=== PATIENT | male | born 1970 | race Caucasian/White ===

== ENCOUNTER 2018-04-24 07:32 | Inpatient (IN) | payer BC ==
[2018-04-24] VITALS (14 sets, daily range): BP systolic 125–174; BP diastolic 76–101
[~2018-04-24 07:32] MED LIST: FLUO-201 PO
--- NOTE | 2018-04-24 07:43 | ER Report ---
History and Physical Time Seen By MD: 07:43 Hx. of Stated Complaint: ABDOMINAL CRAMPING, SHARP PAIN IN RLQ, INTERMITTENT LOW GRADE FEVER HPI/ROS This is an otherwise healthy 48-year-old male who presents to the emergency department with right lower quadrant abdominal pain that has been ongoing for 1 week. He denies nausea or vomiting. No diarrhea. Reports subjective intermittent fever chills. The patient states that he has had similar pain in the past, but the pain lasts 1-2 days only and self resolves. He has never sought medical care for the pain. The intermittent pain has been going on for approximately 5 years. This episode is similar in severity of pain, however the length of symptoms have lasted longer. No testicular pain. No hematuria or other urinary symptoms. He has not had any abdominal surgeries in the past. He reports normal bowel movements. Remainder of the 14 system rev: Yes Allergies: Coded Allergies: Penicillins (Verified Allergy, Unknown, 04/24/18) EHR CONVERSION Home Meds Discontinued Scripts Fluoxetine Hcl (PROZAC) 10 Mg Capsule, 1 CAP PO QDAY, #60 CAPSULE Prov:KULWINDER JEWELL MD 06/29/17 Reviewed Nurses Notes: Yes Old Medical Records Reviewed: Yes Hx Smoking: No Smoking Status: Never Smoker Exposure to Second Hand Smoke?: No Hx Substance Use Disorder: No Hx Alcohol Use: No Constitutional Vital Sign - Last 24 Hours 04/24/18 07:36 Temp 98.1 Pulse 101 Resp 18 B/P (MAP) 130/83 Pulse Ox 92 O2 Delivery Room Air Physical Exam General Appearance: The patient is alert, has no immediate need for airway protection and no current signs of toxicity. Eyes: Pupils equal and round no injection. Respiratory: Chest is non tender, lungs are clear to auscultation. Cardiac: regular rate and rhythm Gastrointestinal: Abdomen is soft with RLQ TTP, no masses, bowel sounds normal. Neck: Neck is supple and non tender. Extremities have full range of motion and are non tender. Skin: No rashes or lesions. DIFFERENTIAL DIAGNOSIS: After history and physical exam differential diagnosis was considered for abdominal pain including but not limited to appendicitis, cholecystitis, gastritis and urinary tract infection. Medical Decision Making Data Points Result Diagram: 04/24/18 0745 04/24/18 0745 Laboratory Hematology Test 04/24/18 07:38 04/24/18 07:45 Urine Color Yellow Urine Clarity Clear Urine pH 5.0 pH (4.8-9.5) Urine Specific [employer] 1.019 Urine Protein Negative mg/dL (NEGATIVE) Urine Glucose (UA) Negative mg/dL (NEGATIVE) Urine Ketones 20 mg/dL (NEGATIVE) Urine Blood Small (NEGATIVE) Urine Nitrite Negative (NEGATIVE) Urine Bilirubin Negative (NEGATIVE) Urine Urobilinogen Negative mg/dL (0.2-1.9) Urine Leukocyte Esterase Negative (NEGATIVE) Urine RBC 1 /HPF (0-2/HPF) Urine WBC 1 /HPF (0-5/HPF) Urine Squamous Epithelial Cells None /LPF (</=FEW) Urine Bacteria Negative /HPF (NONE-FEW) Urine Mucus Few /HPF (NONE-FEW) Red Blood Count 5.00 M/uL (4.00-5.60) Mean Corpuscular Volume 85.6 fL (80.0-96.0) Mean Corpuscular Hemoglobin 30.4 pg (26.0-33.0) Mean Corpuscular Hemoglobin Concent 35.5 g/dL (32.0-36.0) Red Cell Distribution Width 13.4 % (11.5-14.5) Mean Platelet Volume 7.1 fL (7.2-11.1) Neutrophils (%) (Auto) 70.8 % (39.4-72.5) Lymphocytes (%) (Auto) 14.5 % (17.6-49.6) Monocytes (%) (Auto) 12.5 % (4.1-12.4) Eosinophils (%) (Auto) 1.6 % (0.4-6.7) Basophils (%) (Auto) 0.6 % (0.3-1.4) Nucleated RBC Relative Count (auto) 0.0 /100WBC Neutrophils # (Auto) 7.1 K/uL (2.0-7.4) Lymphocytes # (Auto) 1.5 K/uL (1.3-3.6) Monocytes # (Auto) 1.3 K/uL (0.3-1.0) Eosinophils # (Auto) 0.2 K/uL (0.0-0.5) Basophils # (Auto) 0.1 K/uL (0.0-0.1) Nucleated RBC Absolute Count (auto) 0.00 K/uL Peripheral Blood Smear No Y/N Sodium Level 139 mmol/L (137-145) Potassium Level 3.6 mmol/L (3.5-5.0) Chloride Level 101 mmol/L (98-107) Carbon Dioxide Level 26 mmol/L (22-30) Blood Urea Nitrogen 12 mg/dl (9-21) Creatinine 1.00 mg/dl (0.66-1.25) Glomerular Filtration Rate Calc > 60.0 Random Glucose 134 mg/dl (75-110) Calcium Level 9.1 mg/dl (8.4-10.2) Total Bilirubin 0.9 mg/dl (0.2-1.3) Aspartate Amino Transf (AST/SGOT) 21 U/L (0-35) Alanine Aminotransferase (ALT/SGPT) 37 U/L (0-56) Alkaline Phosphatase 46 U/L (0-126) Total Protein 7.9 g/dl (6.3-8.2) Albumin 4.4 g/dl (3.5-5.0) Lipase 32 U/L (23-300) Chemistry Test 04/24/18 07:38 04/24/18 07:45 Urine Color Yellow Urine Clarity Clear Urine pH 5.0 pH (4.8-9.5) Urine Specific [employer] 1.019 Urine Protein Negative mg/dL (NEGATIVE) Urine Glucose (UA) Negative mg/dL (NEGATIVE) Urine Ketones 20 mg/dL (NEGATIVE) Urine Blood Small (NEGATIVE) Urine Nitrite Negative (NEGATIVE) Urine Bilirubin Negative (NEGATIVE) Urine Urobilinogen Negative mg/dL (0.2-1.9) Urine Leukocyte Esterase Negative (NEGATIVE) Urine RBC 1 /HPF (0-2/HPF) Urine WBC 1 /HPF (0-5/HPF) Urine Squamous Epithelial Cells None /LPF (</=FEW) Urine Bacteria Negative /HPF (NONE-FEW) Urine Mucus Few /HPF (NONE-FEW) White Blood Count 10.1 k/uL (4.5-11.0) Red Blood Count 5.00 M/uL (4.00-5.60) Hemoglobin 15.2 g/dL (14.0-18.0) Hematocrit 42.8 % (42.0-52.0) Mean Corpuscular Volume 85.6 fL (80.0-96.0) Mean Corpuscular Hemoglobin 30.4 pg (26.0-33.0) Mean Corpuscular Hemoglobin Concent 35.5 g/dL (32.0-36.0) Red Cell Distribution Width 13.4 % (11.5-14.5) Platelet Count 317 K/uL (150-450) Mean Platelet Volume 7.1 fL (7.2-11.1) Neutrophils (%) (Auto) 70.8 % (39.4-72.5) Lymphocytes (%) (Auto) 14.5 % (17.6-49.6) Monocytes (%) (Auto) 12.5 % (4.1-12.4) Eosinophils (%) (Auto) 1.6 % (0.4-6.7) Basophils (%) (Auto) 0.6 % (0.3-1.4) Nucleated RBC Relative Count (auto) 0.0 /100WBC Neutrophils # (Auto) 7.1 K/uL (2.0-7.4) Lymphocytes # (Auto) 1.5 K/uL (1.3-3.6) Monocytes # (Auto) 1.3 K/uL (0.3-1.0) Eosinophils # (Auto) 0.2 K/uL (0.0-0.5) Basophils # (Auto) 0.1 K/uL (0.0-0.1) Nucleated RBC Absolute Count (auto) 0.00 K/uL Peripheral Blood Smear No Y/N Glomerular Filtration Rate Calc > 60.0 Calcium Level 9.1 mg/dl (8.4-10.2) Total Bilirubin 0.9 mg/dl (0.2-1.3) Aspartate Amino Transf (AST/SGOT) 21 U/L (0-35) Alanine Aminotransferase (ALT/SGPT) 37 U/L (0-56) Alkaline Phosphatase 46 U/L (0-126) Total Protein 7.9 g/dl (6.3-8.2) Albumin 4.4 g/dl (3.5-5.0) Lipase 32 U/L (23-300) Urinalysis Test 04/24/18 07:38 Urine Color Yellow Urine Clarity Clear Urine pH 5.0 pH (4.8-9.5) Urine Specific [employer] 1.019 Urine Protein Negative mg/dL (NEGATIVE) Urine Glucose (UA) Negative mg/dL (NEGATIVE) Urine Ketones 20 mg/dL (NEGATIVE) Urine Blood Small (NEGATIVE) Urine Nitrite Negative (NEGATIVE) Urine Bilirubin Negative (NEGATIVE) Urine Urobilinogen Negative mg/dL (0.2-1.9) Urine Leukocyte Esterase Negative (NEGATIVE) Urine RBC 1 /HPF (0-2/HPF) Urine WBC 1 /HPF (0-5/HPF) Urine Squamous Epithelial Cells None /LPF (</=FEW) Urine Bacteria Negative /HPF (NONE-FEW) Urine Mucus Few /HPF (NONE-FEW) EKG/Imaging Imaging Results: CT scan of the abdomen/pelvis was obtained. The results of the study are likely ruptured appendicitis. The study was read by the radiologist. I viewed the images myself on the PACS system. ED Course/Re-evaluation ED Course Otherwise healthy 48-year-old male with one week of worsening right lower quadrant pain. CT scan suggestive of a ruptured appendicitis. Dr. Hodge is at the bedside. The patient is otherwise stable. He was given Levaquin and Flagyl for antibiotics due to his penicillin allergy. He is currently NPO. He will be transferred to the OR upon leaving the emergency department. Decision to Disposition Date: Apr 24, 2018 Decision to Disposition Time: 10:56 Depart Departure Latest Vital Signs Vital Signs Date Time Temp Pulse Resp B/P (MAP) Pulse Ox O2 Delivery O2 Flow Rate FiO2 04/24/18 07:36 98.1 101 18 130/83 92 Room Air Impression: Primary Impression: Appendicitis with perforation Condition: Improved Disposition: ADMIT FROM ER TO OR Referrals: KULWINDER JEWELL MD (PCP) New Scripts No Active Prescriptions or Reported Meds CHRISTINA CARPENTER MD Apr 24, 2018 07:43
[2018-04-24] MEDS ORDERED: NS(*) 0.9% 1000 ML BAG 1,000 ML IV ONE (07:45)
[2018-04-24 08:05] LABS: PLATELET COUNT, AUTOMATED 317 K/uL (150-450)
[2018-04-24] MEDS ORDERED: IOPAMIDOL 76% 100 ML INFUS BTL 100 ML ONE (09:13)
--- NOTE | 2018-04-24 10:02 | RADIOLOGY IMAGING REPORT ---
FACILITY: [facility] PATIENT NAME: Hola Bee : 1970 MR: [id number] V: [id number] EXAM DATE: ORDERING PHYSICIAN: CHRISTINA CARPENTER TECHNOLOGIST: [place] [facility] [place] Hola Bee : 1970 Visit/Account:[id number] Date of Sevice: 04/24/2018 ABDOMEN/PELVIS WITH CONTRAST HISTORY: Right lower quadrant pain and nausea. TECHNIQUE: CT abdomen and pelvis with intravenous contrast. One of the following dose optimization techniques was utilized in the performance of this exam: Autom ated exposure control; adjustment of the mA and/or kV according to the patient's size; or use of an i terative reconstruction technique. Specific details can be referenced in the facility's radiology C T exam operational policy. CONTRAST: 85 mL Isovue-370 IV COMPARISON: None. FINDINGS: Visualized lung bases: Negative. Hepatobiliary: Negative. Spleen: Negative. Adrenals: 0.9 x 1.2 cm left adrenal nodule (3/123) intermediate in attenuation. Pancreas: Negative. Kidneys/: Several too small to characterize low attenuating lower pole renal cortical lesions, lik jyoti cysts. GI: Stomach and small bowel unremarkable. Retrocecal appendix, distended measuring approximately 14 mm maximum diameter. Partially circumscribed and rim-enhancing 2.7 x 3.0 cm fluid collection surround ing the appendiceal tip consistent with rupture and periappendiceal abscess. Colon unremarkable. Vessels/spaces/nodes: Surrounding the aforementioned dilated appendix and periappendiceal abscess, m oderate inflammation and trace free fluid with thickening of the adjacent peritoneal reflection. Jalyn ral prominent but not frankly enlarged and likely reactive right lower quadrant mesenteric lymph node s. Circumaortic left renal vein, normal variant. No pneumoperitoneum. Bones/soft tissues: Mild degenerative changes right greater than left hips. IMPRESSION: 1. Acute appendicitis with likely perforation and periappendiceal abscess. 2. 1.2 cm left adrenal nodule, probably benign. According to ACR recommendations regarding incidental findings however, correlation with biochemical assay to determine functional status and exclude pheo chromocytoma as well as follow-up CT in 12-months to assess stability should be considered. Findings of acute appendicitis with likely perforation and abscess were called to Dr. CHRISTINA CARPENTER at 08/2018 9:55 AM. Report Dictated By: Dao Fitzgerald MD at 04/24/2018 9:45 AM Report E-Signed By: Dao Fitzgerald MD at 04/24/2018 9:58 AM WSN:[id number]
[2018-04-24] MEDS ORDERED: LEVOFLOXACIN/D5W*500 MG/100 ML 100 ML IVPB ONE (10:10)
[2018-04-24] MEDS ORDERED: metroNIDAZOLE* 500MG/100ML BAG 100 ML IVPB ONE (10:10)
[2018-04-24] MEDS ORDERED: ROPIVACAINE 0.5% 20 ML VIAL ONE (10:13)
--- NOTE | 2018-04-24 10:27 | Gen Surgery History & Physical ---
History of Present Illness Chief Complaint RLQ abdominal pain History of Present Illness 48yo male presents to [facility] ER with 1 week of worsening RLQ abdominal pain. He actually has had similar symptoms 3-4 times over the last 5 years that would resolve after a day or two. This time, it has been getting worse. No N/V. No diarrhea or constipation. CT scan is c/w perforated appendicitis with periappendiceal fluid. History Problems: (1) Low back pain with sciatica Status: Chronic Home Meds Discontinued Scripts Fluoxetine Hcl (PROZAC) 10 Mg Capsule, 1 CAP PO QDAY, #60 CAPSULE Prov:KULWINDER JEWELL MD 06/29/17 Allergies: Coded Allergies: Penicillins (Verified Allergy, Unknown, 04/24/18) EHR CONVERSION Review of Systems All Systems Reviewed/Normal: Yes, Except as Noted Gastrointestinal: Abdominal Pain Exam General Appearance: Alert, Awake, No Acute Distress, Afebrile Neuro: No Gross deficits Eyes: PERRLA GI: Other (Soft, RLQ TTP with peritoneal irritation) Extremities: Warm, Perfused Medical Decision Making Data Points Result Diagram: 04/24/18 0745 04/24/18 0745 Assessment and Plan Problems: (1) Appendicitis with peritoneal abscess Status: Acute Assessment & Plan: 04/24/18: Atypical and delayed presentation for appendicitis. I have explained this to the patient and I've recommend that we proceed with surgery, namely diagnostic laparoscopy and at least drainage of the fluid collection but if there's a phlegmon then I will plan on draining his RLQ and getting out without further attempts at removing his appendix during this initial operation to avoid injuring his small bowel, colon, or ureter and we would treat him with antibiotics and then plan on interval appendectomy in at least 6 weeks. If I can remove the appendix during this operation, in addition to draining the fluid collection then I will. I have explained the operation with the patient in great detail along with the alternatives, including non-operative management with antibiotics alone, but I have recommended surgical exploration. After this discussion, he seems to understand and he indicates that he would like to proceed with surgery. I have also told him that there's a good chance that I will leave a drain in his RLQ as well. Will give him a dose of levaquin and metronidazole since he has a PCN allergy. I have also informed him that he will be in the hospital for several days and he can go home when he's tolerating a regular diet, demonstrates good bowel function, and he's not having fevers (and rest of vital signs are normal) and his WBC is normal. He seems to understand this as well. (2) Appendicitis with perforation Status: Acute Condition Stable. Time Spent: < 30 min Venous Thromboembolism VTE Risk Physician Assess for VTE Risk: Yes Patient's VTE Risk: Low VTE Diagnostic Test 2 Days Prior to Admit: No Antithrombotics Is Pt On Any Antithrombotics?: No RIGO JOHNSON MD Apr 24, 2018 10:27
[2018-04-24] MEDS ORDERED: NORMOSOL R SOLN(*) 1000 ML BAG 1,000 ML IV ONE (10:28)
[2018-04-24] MEDS ORDERED: NEOSTIG METHYLSUL 10MG/10ML VL ONE (10:47)
[2018-04-24] MEDS ORDERED: PROPOFOL EMUL(*) 10MG/ML 20 ML 20 ML ONE (10:47)
[2018-04-24] MEDS ORDERED: DEXAMETHASONE SOD 4 MG/ML VIAL ONE (10:47)
[2018-04-24] MEDS ORDERED: ROCURONIUM BROM 10 MG/ML 10 ML ONE (10:47)
[2018-04-24] MEDS ORDERED: METOCLOPRAMIDE 10 MG/2 ML SDV ONE (10:47)
[2018-04-24] MEDS ORDERED: SUGAMMADEX SOD 200 MG/2 ML SDV ONE (10:47)
[2018-04-24] MEDS ORDERED: fentaNYL CITR 100 MCG/2 ML AMP ONE ×4 (10:48→13:48)
[2018-04-24] MEDS ORDERED: NALOXONE HCL 0.4 MG/ML VIAL IVP PRN (12:50)
[2018-04-24] MEDS ORDERED: FLUSH 10 ML SYR IVP PRN (12:50)
[2018-04-24] MEDS ORDERED: ONDANSETRON 4 MG/2 ML VIAL IVP PRN (12:50)
[2018-04-24] MEDS ORDERED: ACETAMINOPHEN(*)1000 MG/100 ML 100 ML IVPB PRN (12:50)
[2018-04-24] MEDS ORDERED: ACETAMINOPHEN(*)1000 MG/100 ML 100 ML IVPB ONE (12:57)
[2018-04-24] MEDS ORDERED: ONDANSETRON 4 MG/2 ML VIAL ONE (12:58)
--- NOTE | 2018-04-24 13:06 | Post Operative Progress Note ---
Post Operative Progress Note Date: Apr 24, 2018 Time: 12:57 Surgeon: Naveen Dictation number: [id number] Anesthesia: GETA by Dr. Patterson Pre-Op Diagnosis: Perforated appendicitis with abscess Post-Op Diagnosis: DESI Findings: C/W dx, periappendiceal abscess Procedure(s): Lap appy Specimen Removed:(May be N/A): Appendix Abscess fluid sent for gram stain and Cx/Sens. Complications: None Fluids: See anesthesia record Estimated Blood Loss: Minimal Date OP Note Dictated: Apr 24, 2018 Time OP Note Dictated: 12:58 RIGO JOHNSON MD Apr 24, 2018 13:06
[2018-04-24] MEDS ORDERED: LABETALOL HCL 100 MG/20ML VIAL ONE (13:09)
[2018-04-24] MEDS: PROMETHAZINE 25 MG/ML 1 ML AMP IVP PRN (13:17)
[2018-04-24] MEDS: NS(*) 0.9% 1000 ML BAG 1,000 ML IV PRN ×2 (13:25→23:21)
[2018-04-24] MEDS: HYDROmorphone PCA 6 MG/30 ML IV PRN (14:50)
[2018-04-24] MEDS: metroNIDAZOLE* 500MG/100ML BAG 100 ML IVPB SCH ×2 (17:23→23:21)
[2018-04-25 04:07] VITALS: BP 139/93
[2018-04-25] MEDS: HYDROmorphone PCA 6 MG/30 ML IV PRN ×2 (04:36→23:30)
--- NOTE | 2018-04-25 04:46 | OPERATIVE REPORT 1 ---
EVENT DATE: April 24, 2018 SURGEON: Elgin Hodge MD ANESTHESIOLOGIST: Elgin Patterson MD ANESTHESIA: General endotracheal. PREOPERATIVE DIAGNOSIS Acute perforated appendicitis with abscess. POSTOPERATIVE DIAGNOSIS Acute perforated appendicitis with abscess. PROCEDURE PERFORMED Laparoscopic appendectomy. COMPLICATIONS None. CONDITION Stable. BLOOD LOSS Minimal. FINDINGS This patient had an acutely inflamed appendix. It was adherent to the lower abdominal sidewall, and there was an adjacent abscess. INDICATIONS This is a 48-year-old gentleman who presented to the emergency department with a one-week history of worsening right lower quadrant abdominal pain. He had had intermittent abdominal pain over the last five years, he has had about three or four episodes of similar symptoms, but they went away spontaneously. This time, it has not gone away, and it is getting worse. A CT scan is consistent with a perforated appendicitis. DESCRIPTION OF PROCEDURE The patient was brought to the operating room, placed supine on the operating table. General endotracheal anesthesia was administered, and his abdomen was prepped and draped in sterile fashion. A time out was completed, and I injected the infraumbilical skin with 0.2% ropivacaine plain. I made a curvilinear smiley-face type incision in the infraumbilical rim and dissected through the dermis and into the subcutaneous fat. I identified the midline fascia, made a vertical incision in the midline fascia, bluntly entered the peritoneal cavity with my finger and placed two interrupted #0-Vicryl sutures transversely through the vertical fascial defect. I inserted a 12 mm Renee type port through this wound, securing it into place with sutures. I then insufflated the abdomen to a pressure of 15 mmHg and then inserted a 5 mm 30- degree angle scope through this port. Next, under direct visualization, I placed a suprapubic 5 mm port and a left lower quadrant 5 mm port. The patient was placed in Trendelenburg and planed towards the left to move the viscera away from the right lower quadrant. As the viscera moved out of the right lower quadrant, I could see the appendix, which was adhesed to the pelvic sidewall. I used blunt dissection to free it up from the sidewall, and while doing this, popped into the abscess cavity and suctioned out approximately 15 mL of thick purulent material. This was sent for gram stain, aerobic and anaerobic cultures. I irrigated and dried the abscess cavity, and made sure there was no more purulent material in the patient's abdomen. I then continued to work on the appendix, and because it was approaching a phlegmon condition, I identified the base of the appendix and made a window adjacent to the base of the appendix, used the Endo ЕЛЕНА stapler with blue load and divided the base of the appendix flush with the cecum. I then used the harmonic scalpel to dissect the mesoappendix and provided hemostasis along the way. Eventually I was able to free up the entire appendix and put in a surgical specimen retrieval bag and remove it from the abdomen through the umbilical port site. I irrigated and dried the right lower quadrant with copious amounts of irrigation fluid until it was clean and no purulent material or contamination was evident. I then placed a 10 mm flat Burton-Navarro drain to run along the right pericolic gutter running through the abscess cavity and down into the pelvis, and it came out through the left lower quadrant port site, which I secured to the skin with #0-silk suture. After ensuring there was no further irrigation fluid or other fluids in the pelvis or up above the liver, I desufflated the abdomen and removed the ports. I closed the midline fascia with a running #0-Vicryl suture and tied all three of these down with good reapproximation of fascial edges. Skin at the two remaining port sites was closed with 4-0 Monocryl subcuticular sutures. Skin was cleaned, dried, and Steri-Strips were applied followed by sterile surgical dressings and a drain dressing. The patient was awakened, extubated in the operating room and transported to the recovery room in stable condition, having tolerated the procedure without any apparent problems. BELLA
[2018-04-25] MEDS: metroNIDAZOLE* 500MG/100ML BAG 100 ML IVPB SCH ×4 (05:18→23:29)
[2018-04-25 05:48] LABS: PLATELET COUNT, AUTOMATED 265 K/uL (150-450)
[2018-04-25 07:12] VITALS: BP 125/78
--- NOTE | 2018-04-25 07:31 | General Surgery Progress Note ---
Subjective Progress Notes Subjective Feeling pretty good. Pain controlled. Had some urinary retention last evening. Feels better this morning with improved voiding of bladder. Passed a small amount of flatus this morning. Less bloating. Physical Exam Vital Signs Date Time Temp Pulse Resp B/P (MAP) Pulse Ox O2 Delivery O2 Flow Rate FiO2 04/25/18 07:18 95 Nasal Cannula 0.5 04/25/18 07:12 97.8 73 18 125/78 (94) General Appearance: Alert, Awake, No Acute Distress, Afebrile GI: Other (Soft, appropriate postop TTP, dressings C/D/I. KRISTEN with serous drainage.) Extremities: Warm, Perfused Result Diagram: 04/25/18 0504/25/18 05 Assessment and Plan Problems: (1) Appendicitis with peritoneal abscess Status: Acute Assessment & Plan: 04/24/18: Atypical and delayed presentation for appendicitis. I have explained this to the patient and I've recommend that we proceed with surgery, namely diagnostic laparoscopy and at least drainage of the fluid collection but if there's a phlegmon then I will plan on draining his RLQ and getting out without further attempts at removing his appendix during this initial operation to avoid injuring his small bowel, colon, or ureter and we would treat him with antibiotics and then plan on interval appendectomy in at least 6 weeks. If I can remove the appendix during this operation, in addition to draining the fluid collection then I will. I have explained the operation with the patient in great detail along with the alternatives, including non-operative management with antibiotics alone, but I have recommended surgical exploration. After this discussion, he seems to understand and he indicates that he would like to proceed with surgery. I have also told him that there's a good chance that I will leave a drain in his RLQ as well. Will give him a dose of levaquin and metronidazole since he has a PCN allergy. I have also informed him that he will be in the hospital for several days and he can go home when he's tolerating a regular diet, demonstrates good bowel function, and he's not having fevers (and rest of vital signs are normal) and his WBC is normal. He seems to understand this as well. 04/25/18: POD#1 s/p lap appy for perforated appendicitis with abscess. Doing well. Ileus improving. Will start sips of clears today but limit intake. Will decrease IV fluids. Continue IV abx today. If WBC normal and afebrile then will stop abx tomorrow. Pt is doing very well. Lovenox, PPI, ambulation, IS, pulmonary hygiene. (2) Appendicitis with perforation Status: Acute Condition Stable. Time Spent: < 30 min Exam Sepsis Risk: No Definite Risk RIGO JOHNSON MD Apr 25, 2018 07:31
[2018-04-25] MEDS: KCL/D1/2NS 20 MEQ 1000 ML 1,000 ML IV SCH (07:54)
[2018-04-25] MEDS ORDERED: PANTOPRAZOLE SOD 40 MG IV VIAL IVP SCH (09:00)
[2018-04-25] MEDS: ENOXAPARIN 40 MG/0.4ML SYR SC SCH (09:17)
[2018-04-25] MEDS ORDERED: LEVOFLOXACIN/D5W*500 MG/100 ML 100 ML IVPB SCH (10:00)
[2018-04-25 11:17] VITALS: BP 118/76
[2018-04-25 14:42] VITALS: BP 128/73
[2018-04-25 19:01] VITALS: BP 153/91
[2018-04-25 23:35] VITALS: BP 132/77
[2018-04-26] MEDS: KCL/D1/2NS 20 MEQ 1000 ML 1,000 ML IV SCH (03:52)
[2018-04-26] MEDS: metroNIDAZOLE* 500MG/100ML BAG 100 ML IVPB SCH (05:53)
[2018-04-26 05:55] VITALS: BP 139/93
[2018-04-26 06:01] LABS: PLATELET COUNT, AUTOMATED 349 K/uL (150-450)
--- NOTE | 2018-04-26 06:57 | General Surgery Progress Note ---
Subjective Progress Notes Subjective Passing flatus. No BM. Less bloating. Tolerating clear diet. Biggest complaint is sciatica symptoms. Physical Exam Vital Signs Date Time Temp Pulse Resp B/P (MAP) Pulse Ox O2 Delivery O2 Flow Rate FiO2 04/26/18 05:55 98.6 88 16 139/93 (108) 89 Room Air 04/25/18 23:35 0.5 General Appearance: Alert, Awake, No Acute Distress, Afebrile GI: Other (Soft, appropriate postop TTP, dressings removed, incisions look good. KRISTEN with serous drainage.) Extremities: Warm, Perfused Result Diagram: 04/26/18 0540 04/26/18 0540 Assessment and Plan Problems: (1) Appendicitis with peritoneal abscess Status: Acute Assessment & Plan: 04/24/18: Atypical and delayed presentation for appendicitis. I have explained this to the patient and I've recommend that we proceed with surgery, namely diagnostic laparoscopy and at least drainage of the fluid collection but if there's a phlegmon then I will plan on draining his RLQ and getting out without further attempts at removing his appendix during this initial operation to avoid injuring his small bowel, colon, or ureter and we would treat him with antibiotics and then plan on interval appendectomy in at least 6 weeks. If I can remove the appendix during this operation, in addition to draining the fluid collection then I will. I have explained the operation with the patient in great detail along with the alternatives, including non-operative management with antibiotics alone, but I have recommended surgical exploration. After this discussion, he seems to understand and he indicates that he would like to proceed with surgery. I have also told him that there's a good chance that I will leave a drain in his RLQ as well. Will give him a dose of levaquin and metronidazole since he has a PCN allergy. I have also informed him that he will be in the hospital for several days and he can go home when he's tolerating a regular diet, demonstrates good bowel function, and he's not having fevers (and rest of vital signs are normal) and his WBC is normal. He seems to understand this as well. 04/25/18: POD#1 s/p lap appy for perforated appendicitis with abscess. Doing well. Ileus improving. Will start sips of clears today but limit intake. Will decrease IV fluids. Continue IV abx today. If WBC normal and afebrile then will stop abx tomorrow. Pt is doing very well. Lovenox, PPI, ambulation, IS, pulmonary hygiene. 04/26/18: POD#2. Improving. Will start regular diet and stop IV fluids. No fevers and WBC normal. Will stop abx. PO meds. If doing well, possible d/c to home later today vs tomorrow. (2) Appendicitis with perforation Status: Acute Condition Stable. Time Spent: < 30 min Exam Sepsis Risk: No Definite Risk RIGO JOHNSON MD Apr 26, 2018 06:57
[2018-04-26 07:18] VITALS: BP 133/94
[2018-04-26] MEDS: ENOXAPARIN 40 MG/0.4ML SYR SC SCH (08:16)
[2018-04-26] MEDS ORDERED: DOCUSATE SODIUM 100 MG CAP PO SCH (09:00)
[2018-04-26] MEDS ORDERED: PANTOPRAZOLE SOD 40 MG TABEC PO SCH (09:00)
--- NOTE | 2018-04-26 10:01 | Antimicrobial Stewardship ---
Antimicrobial Stewardship MD Service: Other (General Surgery) Indications: Other (Appendicitis with Peritoneal Abscess; Laparoscopic Appendectomy.) Antimicrobial Allergies Penicillins Antimicrobial Used Flagyl IV Duration of Therapy: 3 Days Start Date: Apr 24, 2018 Weight (Calculated Kilograms): 95.254 Culture Results: No Patient Improving Clinically: Yes Tolerating Oral Fluids: Yes Able to Absorb PO Meds: Yes Taking Other Meds PO: Yes Received >24 hr of IV Abx: Yes Afebrile > 24 hrs: Yes Improving Signs and Symptoms: Yes Comments Antibiotics stopped d/t pt afebrile and improving clinically. See Dr. Hodge' s 04/26/18 Progress Note. CHRISTINA ROSARIO Apr 26, 2018 10:01
[2018-04-26 10:54] VITALS: BP 147/97
[2018-04-26 14:36] VITALS: BP 128/98
[2018-04-26] MEDS ORDERED: PER PO (17:35)
[2018-04-26] MEDS ORDERED: DOCU-202 PO (17:35)
--- NOTE | 2018-04-26 17:40 | Short(Outpt) Discharge Summary ---
Discharge Summary Reason for Hosp/Final Diag: (1) Appendicitis with peritoneal abscess Status: Acute Hospital Course & Plan: 04/24/18: Atypical and delayed presentation for appendicitis. I have explained this to the patient and I've recommend that we proceed with surgery, namely diagnostic laparoscopy and at least drainage of the fluid collection but if there's a phlegmon then I will plan on draining his RLQ and getting out without further attempts at removing his appendix during this initial operation to avoid injuring his small bowel, colon, or ureter and we would treat him with antibiotics and then plan on interval appendectomy in at least 6 weeks. If I can remove the appendix during this operation, in addition to draining the fluid collection then I will. I have explained the operation with the patient in great detail along with the alternatives, including non-operative management with antibiotics alone, but I have recommended surgical exploration. After this discussion, he seems to understand and he indicates that he would like to proceed with surgery. I have also told him that there's a good chance that I will leave a drain in his RLQ as well. Will give him a dose of levaquin and metronidazole since he has a PCN allergy. I have also informed him that he will be in the hospital for several days and he can go home when he's tolerating a regular diet, demonstrates good bowel function, and he's not having fevers (and rest of vital signs are normal) and his WBC is normal. He seems to understand this as well. 04/25/18: POD#1 s/p lap appy for perforated appendicitis with abscess. Doing well. Ileus improving. Will start sips of clears today but limit intake. Will decrease IV fluids. Continue IV abx today. If WBC normal and afebrile then will stop abx tomorrow. Pt is doing very well. Lovenox, PPI, ambulation, IS, pulmonary hygiene. 04/26/18: POD#2. Improving. Will start regular diet and stop IV fluids. No fevers and WBC normal. Will stop abx. PO meds. If doing well, possible d/c to home later today vs tomorrow. 04/26/18 (evening): DOing well. Tolerating diet. Will d/c to home. (2) Appendicitis with perforation Status: Acute Departure Discharge to: Home, Self Care Discharge Instructions Home Meds Active Scripts Oxycodone/Acetaminophen (OXYCODONE/ACETAMINOPHEN 5MG/325 MG) 5 Mg/325 Mg Tab, 1- 2 TAB PO Q4H Y for PAIN, #10 TAB 0 Refills Prov:RIGO JOHNSON MD 04/26/18 Docusate Sodium (DOCUSATE SODIUM) 100 Mg Capsule, 1 CAP PO BID, #30 CAPSULE 0 Refills Prov:RIGO JOHNSON MD 04/26/18 Discontinued Scripts Fluoxetine Hcl (PROZAC) 10 Mg Capsule, 1 CAP PO QDAY, #60 CAPSULE Prov:KULWINDER JEWELL MD 06/29/17 Follow up Referrals: General Surgery - In Two Weeks @ Surgery, General with Rigo Johnson Md Diet: Regular Activity: As Tolerated Special Instructions: You may remove the dressing over the drain site on 04/27/18, then you can shower. If the drain site is dry, you can leave it open to air. If it is still draining, cover it with a dry dressing and change this every day until the site is dry without further drainage. You can shower after the dressing is removed but don't immerse the incisions for 2 weeks. Leave the steristrips in place over the incisions until they fall off on their own. RIGO JOHNSON MD Apr 26, 2018 17:39
== END 2018-04-26 18:10 | disposition home or self-care (01) | DRG 340 ==
LOC: ER 08:01 → OR 10:19 → MED 14:10
PROVIDERS: ADMIT Surgery; ATTEND Surgery
PROC: 0DTJ4ZZ Resection of Appendix, Percutaneous Endoscopic Approach (ICD-10-PCS; principal; 2018-04-24 11:18)
DX: K35.3 Acute appendicitis with localized peritonitis (principal); M54.40 Lumbago with sciatica, unspecified side; Z88.0 Allergy status to penicillin
CPT/HCPCS: 36415; 74177; 81001; 82040; 82247; 82310; 82374; 82435; 82565; 82947; 83690; 84075; 84132; 84155; 84295; 84450; 84460; 84520; 85025; 87071; 87073; 87077; 87186; 87205; 88304; C9113; J0131; J1100; J1170; J1650; J1956; J2405; J2550; J2704; J2710; J2765; J2795; J3010; J3480; J3490; J7030; Q9967

== ENCOUNTER 2019-03-29 00:05 | Day surgery (SDC) | payer BC ==
[~2019-03-29] VITALS: Ht 182.9 cm; Wt 95.7 kg
[~2019-03-29 00:05] MED LIST changes: +ASPI-1471 PO; +DOCU-202 PO; +IBUP400T13 PO; +LORA1TAB69 PO; +PER PO; +ROSU20TA24 PO
[2019-03-29 06:58] VITALS: BP 133/86
[2019-03-29] MEDS ORDERED: PROPOFOL EMUL(*) 10MG/ML 20 ML 40 ML ONE (07:10)
[2019-03-29] MEDS ORDERED: LIDOCAINE MPF 1% 5 ML VIAL ONE (07:10)
[2019-03-29] MEDS ORDERED: NORMOSOL R SOLN(*) 1000 ML BAG 1,000 ML IV PRN (07:15)
[2019-03-29] MEDS ORDERED: LIDOCAINE/SOD BICARB 8.4% SYR ID ONE (07:15)
[2019-03-29 08:53] VITALS: BP 124/81
--- NOTE | 2019-03-29 09:00 | Short(Outpt) Discharge Summary ---
Discharge Summary Reason for Hosp/Final Diag: (1) Colon cancer screening Status: Acute Hospital Course & Plan: Colonoscopy completed without problems; normal. Departure Discharge to: Home, Self Care Discharge Instructions Home Meds Reported Medications Loratadine/Pseudoephedrine (CLARITIN-D 24 HOUR TABLET) 1 Each Tab.er.24h, 1 EACH PO QDAY 03/21/19 Rosuvastatin Calcium (CRESTOR) 20 Mg Tablet, 20 MG PO QDAY 03/21/19 Ibuprofen (IBUPROFEN) 400 Mg Tablet, 1 TAB PO Q6H, TAB 02/14/19 Aspirin (ASPIR 81) 81 Mg Tablet.dr, 81 MG PO QDAY, TAB 02/14/19 Diet: Regular Activity: As Tolerated Special Instructions: Your colonoscopy was completed without any problems and your prep was excellent (Good Job!!). There were no polyps, cancers, inflammation or other abnormalities; it was completely normal. I recommend that your next colonoscopy be in 10 years. RIGO JOHNSON MD Mar 29, 2019 09:00
[2019-03-29 09:14] VITALS: BP 137/79
[2019-03-29 09:31] VITALS: BP 131/79
[2019-03-29 09:44] VITALS: BP 109/94
[2019-03-29 09:45] VITALS: BP 123/78
== END 2019-03-29 09:53 | disposition home or self-care (01) ==
LOC: OR 00:05
PROVIDERS: ATTEND Surgery
DX: Z12.11 Encounter for screening for malignant neoplasm of colon (principal)
CPT/HCPCS: 00812; 45378; J2001; J2704